=== PATIENT | female | born 1995 | race Native Hawaiian/Other Pacific Islander ===

== ENCOUNTER 2021-07-03 06:45 | Emergency (ER) | payer OTHER ==
[~2021-07-03] VITALS: Ht 154.9 cm; Wt 77.1 kg
[2021-07-03 06:59] VITALS: TEMP 97.3
[2021-07-03 07:45] VITALS: BP 148/92
== END 2021-07-03 07:45 | disposition home or self-care (01) ==
LOC: ED 06:45
DX: K08.89 Other specified disorders of teeth and supporting structures (principal)
CPT/HCPCS: 99281